=== PATIENT | female | born 1950 | race Caucasian/White ===

== ENCOUNTER 2017-05-29 20:54 | Inpatient (IN) | payer OTHER ==
[~2017-05-29] VITALS: Ht 154.9 cm; Wt 65.5 kg
[~2017-05-29 20:54] MED LIST: DECADRON1 MG PO; DIOVAN HCT 31 TABLET PO; GABAPENTIN100 MG PO; METFORMIN HCL1000 MG PO; OMEPRAZOLE40 M1 PO; REQUIP2 MG PO; SIMVASTATIN20 MG PO; SYNTHROID50 MCG PO
[2017-05-30] VITALS (9 sets, daily range): BP systolic 123–155; BP diastolic 63–90
[2017-05-30 08:15] LABS: POINT-OF-CARE METER ID UU14174212
[2017-05-30 13:48] LABS: POINT-OF-CARE METER ID UU13113675
[2017-05-30 17:28] LABS: METH RESISTANT S AUREUS PCR NEGATIVE (NEGATIVE)
[2017-05-30 17:33] LABS: PROBE CHECK PASS; SPECIMEN PROCESSING CONTROL PASS
[2017-05-31] VITALS (17 sets, daily range): BP systolic 122–150; BP diastolic 58–92
[2017-05-31 04:42] LABS: EOSINOPHIL (%) 0 % (0-5); HEMATOCRIT 40.1 % (36.0-46.0); IMMATURE GRANULOCYTE (%) 0.6 % (0.0-0.7); IMMATURE GRANULOCYTE COUNT 0.1 K/uL; INSTRUMENT ABS NEUTROPHIL CT 6.8 K/uL; LYMPHOCYTE COUNT 0.5 K/uL (1.0-2.8); MCH 30.8 PG (29.0-34.0); MCHC 33.7 G/DL (30.0-36.0); MCV 91.3 FL (83-99); MEAN PLAT.VOLUME 11.1 uM^3 (9.5-12.4); MONOCYTE COUNT 0.5 K/uL (0-0.8); NEUTROPHIL (%) 86.8 % (45-76); NEUTROPHIL COUNT 6.8 K/uL (1.8-6.4); PLATELET COUNT 114 K/uL (156-360); RBC DIS.WIDTH-CV 13.4 % (11.8-14.6); RBC DIS.WIDTH-SD 44.8 % (39-53); RED BLOOD COUNT 4.39 M/uL (3.80-5.20); WHITE BLOOD COUNT 7.8 K/uL (4.1-10.2)
[2017-05-31 04:56] LABS: CHLORIDE 103 mEq/L (99-109); POTASSIUM 4.2 mEq/L (3.7-5.4); SODIUM 139 mEq/L (136-147)
[2017-05-31 04:57] LABS: GLUCOSE 220 mg/dL (70-99)
[2017-05-31 04:59] LABS: ANION GAP 16 MEQ/L (2-14)
[2017-05-31 05:02] LABS: GFR ESTIMATE (CALCULATED) > 59 mL/min/; UREA NITROGEN (BUN) 14 mg/dL (9-23)
[2017-05-31] MEDS ORDERED: KEPPRA500 MG PO (18:36)
== END 2017-05-31 19:55 | disposition home health service (06) | DRG 25 ==
LOC: ENRESERV 20:54 → 2SOUTH 05-30 07:38 → RAD 05-30 09:00 → EDSTATUS 05-30 09:00 → ENRESERV 05-30 10:51 → 2SOUTH 05-30 13:23 → 4WEST 05-30 15:13
PROVIDERS: Internal Medicine Critical Care Medicine; Neurological Surgery
PROC: 00B00ZX Excision of Brain, Open Approach, Diagnostic (ICD-10-PCS; principal; 2017-05-30)
DX: C79.31 Secondary malignant neoplasm of brain (principal); G93.6 Cerebral edema; G40.409 Other generalized epilepsy and epileptic syndromes, not intractable, without status epilepticus; G81.91 Hemiplegia, unspecified affecting right dominant side; C25.9 Malignant neoplasm of pancreas, unspecified; Z85.3 Personal history of malignant neoplasm of breast; D70.2 Other drug-induced agranulocytosis; I10 Essential (primary) hypertension; E11.9 Type 2 diabetes mellitus without complications; G25.81 Restless legs syndrome; K21.9 Gastro-esophageal reflux disease without esophagitis; E03.9 Hypothyroidism, unspecified; F03.90 Unspecified dementia, unspecified severity, without behavioral disturbance, psychotic disturbance, mood disturbance, and anxiety; E78.5 Hyperlipidemia, unspecified; G47.00 Insomnia, unspecified; Z85.828 Personal history of other malignant neoplasm of skin; Z79.84 Long term (current) use of oral hypoglycemic drugs; Z88.0 Allergy status to penicillin; Z88.5 Allergy status to narcotic agent; Z92.3 Personal history of irradiation; Z92.21 Personal history of antineoplastic chemotherapy
CPT/HCPCS: 70450; 77021; 80048; 82948; 85025; 86850; 86900; 86901; 87641; 88307; 88341 TC; 88342 TC; 94002; 94799; C1713; J0330; J1100; J1953; J2250; J2405; J2704; J2710; J3010; J3370; J3480; J7050; Q0175